=== PATIENT | male | born 1980 | race Caucasian/White ===

== ENCOUNTER 2016-11-09 08:19 | Emergency (ER) | payer OTHER ==
--- NOTE | 2016-11-09 08:47 | UC ---
Respiratory Complaint HPI - HPI Summary HPI Summary: ONSET ONE WEEK AGO WITH RIGHT EAR PAIN, MUFFLED HEARING. COUGHING. SINUS CONGESTION, SORE THROAT. TWO DAYS AGO HAD VOMITING AND DIARRHEA . NO FURTHER VOMITING BUT STILL HAS LOOSE STOOLS. Here with GF Tootie Greer in same room with same sx. He has taken zpack for these sx in past with good results. denies sinus pain. no fever. - History of Current Complaint Chief Complaint: UCRespiratory Stated Complaint: COUGH Time Seen by Provider: 11/09/16 08:44 - Allergies/Home Medications Allergies/Adverse Reactions: Allergies Allergy/AdvReac Type Severity Reaction Status Date / Time No Known Allergies Allergy Verified 11/09/16 08:36 PMH/Surg Hx/FS Hx/Imm Hx Previously Healthy: Yes Endocrine History Of: Denies: Diabetes, Thyroid Disease, Hyperthyroidism, Hypothyroidism, Dyslipidemia Cardiovascular History Of: Denies: Cardiac Disorders, Hypertension, Pacemaker/ICD, Myocardial Infarction , Congestive Heart Failure, Atrial Fibrillation, Deep Vein Thrombosis, Bleeding Disorders Respiratory History Of: Reports: Asthma, Pneumonia Denies: COPD, Pulmonary Embolism GI/ History Of: Denies: Kidney Stones Neurological History Of: Denies: TIA Psychological History Of: Denies: Schizophrenia, Post Traumatic Stress Disorder Cancer History Of: Denies: Lung Cancer, Colorectal Cancer, Breast Cancer, Prostate Cancer, Cervical Cancer Other History Of: Negative For: HIV, Hepatitis B, Hepatitis C, Anticoagulant Therapy - Surgical History Surgical History: Yes Surgery Procedure, Year, and Place: RT FOOT SURGERY, TONSILLECTOMY - Family History Known Family History: Positive: Hypertension, Diabetes, Other - + asthma - Social History Alcohol Use: Rare Substance Use Type: None Smoking Status (MU): Light Every Day Tobacco Smoker Type: Cigarettes Amount Used/How Often: 1/2 PPD Have You Smoked in the Last Year: Yes Household Exposure Type: Cigarettes Review of Systems Constitutional: Negative Skin: Negative Eyes: Negative ENT: Nasal Discharge Respiratory: Negative, Cough Cardiovascular: Negative Gastrointestinal: Other - mild loose stool. Genitourinary: Negative Motor: Negative Neurovascular: Negative Musculoskeletal: Negative Neurological: Negative Psychological: Negative All Other Systems Reviewed And Are Negative: Yes Physical Exam Triage Information Reviewed: Yes Appearance: Well-Appearing - mild distress, No Pain Distress, Well-Nourished Vital Signs: Initial Vital Signs Temp 97.6 F 11/09/16 08:37 Pulse 71 11/09/16 08:37 Resp 16 11/09/16 08:37 BP 125/76 11/09/16 08:37 Pulse Ox 99 11/09/16 08:37 Vital Signs Reviewed: Yes Eye Exam: Normal ENT Exam: Normal ENT: Positive: Pharyngeal erythema - + PND< no sinus tenderness, TMs normal. Negative: TM bulging, TM dull, TM red, Tonsillar swelling, Tonsillar exudate Dental Exam: Normal Neck exam: Normal Neck: Positive: Supple, Nontender, No Lymphadenopathy Respiratory Exam: Normal Respiratory: Positive: Chest non-tender, Lungs clear, No respiratory distress, No accessory muscle use, Decreased breath sounds. Negative: Crackles, Rhonchi, Stridor, Wheezing Cardiovascular Exam: Normal Cardiovascular: Positive: RRR, No Murmur, Pulses Normal, Brisk Capillary Refill Abdominal Exam: Normal Abdomen Description: Positive: Nontender, Soft. Negative: Distended, Guarding Bowel Sounds: Positive: Present Musculoskeletal Exam: Normal Neurological Exam: Normal Psychological Exam: Normal Skin Exam: Normal UC Diagnostic Evaluation - Laboratory O2 Sat by Pulse Oximetry: 99 Respiratory Course/Dx - Course Course Of Treatment: URI, fluids rest - Differential Dx/Diagnosis Differential Diagnosis/HQI/PQRI: Asthma, Bronchitis, Lower Resp Infection, Sinusitis Provider Diagnoses: Bronchitis, resolved mild gastroenteritis Discharge - Discharge Plan Condition: Stable Disposition: HOME Prescriptions: Albuterol HFA INHALER* [Ventolin HFA Inhaler*] 2 puff INH Q4H PRN #1 mdi PRN Reason: Cough Azithromyxin SERA (NF) [Z-Sera (Zithromax)] 250 mg PO .ZPAK INSTRUCTIONS #6 tab Patient Education Materials: Upper Respiratory Infection (ED) Referrals: Chelsy Zavala MD [Primary Care Provider] - 4 Days Additional Instructions: Fluids, rest. stoping smoking will help take a probiotic with antibiotic.
[2016-11-09 08:53] VITALS: BP 125/76
== END 2016-11-09 09:22 | disposition home or self-care (01) ==
LOC: UCCORT 08:19
DX: J40 Bronchitis, not specified as acute or chronic (principal); F17.210 Nicotine dependence, cigarettes, uncomplicated
CPT/HCPCS: 99212; G0463

== ENCOUNTER 2016-12-22 07:10 | Emergency (ER) | payer OTHER ==
[2016-12-22 07:21] VITALS: BP 132/74
--- NOTE | 2016-12-22 11:38 | UC ---
Throat Pain/Nasal Faisal HPI - HPI Summary HPI Summary: ST, cough, fever, aches x 3 days. Did not have flu shot. - History of Current Complaint Chief Complaint: UCGeneralIllness Stated Complaint: FLU SXS Time Seen by Provider: 12/22/16 07:24 Hx Obtained From: Patient Onset/Duration: Gradual Onset, Lasting Days, Still Present Pain Intensity: 7 Pain Scale Used: 0-10 Numeric Cough: Nonproductive Associated Signs & Symptoms: Positive: Dysphagia, Hoarseness, Nasal Discharge, Fever Related History: Smoking - Epiglottits Risk Factors Epiglottis Risk Factors: Negative - Allergies/Home Medications Allergies/Adverse Reactions: Allergies Allergy/AdvReac Type Severity Reaction Status Date / Time ANESTHESIA Allergy See Comment Uncoded 12/22/16 07:23 PMH/Surg Hx/FS Hx/Imm Hx Respiratory History Of: Reports: Asthma, Pneumonia Cancer History Of: Denies: Lung Cancer, Colorectal Cancer, Breast Cancer, Prostate Cancer, Cervical Cancer Other History Of: Negative For: HIV, Hepatitis B, Hepatitis C, Anticoagulant Therapy - Surgical History Surgical History: Yes Surgery Procedure, Year, and Place: RT FOOT SURGERY, TONSILLECTOMY - Family History Known Family History: Positive: Hypertension, Diabetes, Other - + asthma - Social History Occupation: Employed Full-time Lives: With Family Alcohol Use: Rare Substance Use Type: None Smoking Status (MU): Current Every Day Smoker Type: Cigarettes Amount Used/How Often: 1/2 PPD Length of Time of Smoking/Using Tobacco: 16 YRS Have You Smoked in the Last Year: Yes Household Exposure Type: Cigarettes Review of Systems Constitutional: Fever Skin: Negative Eyes: Negative ENT: Sore Throat Respiratory: Cough Cardiovascular: Negative Gastrointestinal: Negative Genitourinary: Negative Motor: Negative Neurovascular: Negative Musculoskeletal: Myalgia Neurological: Headache Psychological: Negative All Other Systems Reviewed And Are Negative: Yes Physical Exam Triage Information Reviewed: Yes Appearance: Well-Nourished, Ill-Appearing, Pain Distress Vital Signs: Initial Vital Signs Temp 99.1 F 12/22/16 07:16 Pulse 91 12/22/16 07:16 Resp 24 12/22/16 07:16 BP 132/74 12/22/16 07:16 Pulse Ox 99 12/22/16 07:16 Vital Signs Reviewed: Yes Eyes: Positive: Conjunctiva Clear ENT: Positive: Hearing grossly normal, Pharyngeal erythema, TMs normal Neck: Positive: Supple, Nontender, No Lymphadenopathy Respiratory: Positive: Lungs clear, Normal breath sounds, No respiratory distress Cardiovascular: Positive: RRR, No Murmur, Pulses Normal, Brisk Capillary Refill Musculoskeletal: Positive: Strength Intact, ROM Intact Neurological: Positive: Alert, Muscle Tone Normal Psychological Exam: Normal Skin Exam: Normal Throat Pain/Nasal Course/Dx - Course Course Of Treatment: pt is not high risk group for influenza. pt is past window for tamiflu. will advise to treat symptomatically. - Differential Dx/Diagnosis Differential Diagnosis/HQI/PQRI: Influenza, Pharyngitis, Sinusitis, URI Provider Diagnoses: influenza, clinical diagnosis Discharge - Discharge Plan Condition: Stable Disposition: HOME Prescriptions: Guaifenesin [Guaifenesin LA] 600 mg PO BID #20 tab Patient Education Materials: Influenza (ED) Referrals: No Primary Care Phys,NOPCP [Primary Care Provider] - Additional Instructions: We have given a list of providers who are accepting new patients so that you can get established with a doctor. Return to urgent care if you have any new or worsening symptoms.
== END 2016-12-22 08:20 | disposition home or self-care (01) ==
LOC: UCCORT 07:10
DX: J11.1 Influenza due to unidentified influenza virus with other respiratory manifestations (principal); J45.909 Unspecified asthma, uncomplicated; F17.210 Nicotine dependence, cigarettes, uncomplicated; Z88.4 Allergy status to anesthetic agent
CPT/HCPCS: 87651; 99212; G0463

== ENCOUNTER 2018-05-05 07:04 | Emergency (ER) | payer SELFPAY ==
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
[2018-05-05 07:28] VITALS: BP 141/94
[2018-05-05] MEDS ORDERED: Silver Sulfadiazine 1% 400gm* 1 APPLIC JAR TOPICAL ONE (07:51)
[2018-05-05] MEDS ORDERED: Silver Sulfadiazine 1%* 20 GM ONE (07:53)
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
== END 2018-05-05 08:15 | disposition home or self-care (01) ==
LOC: UCCORT 07:04
DX: T23.202A Burn of second degree of left hand, unspecified site, initial encounter (principal); T31.0 Burns involving less than 10% of body surface; Y93.I9 Activity, other involving external motion; W39.XXXA Discharge of firework, initial encounter; Y92.9 Unspecified place or not applicable; H66.91 Otitis media, unspecified, right ear; Z88.4 Allergy status to anesthetic agent; Z82.49 Family history of ischemic heart disease and other diseases of the circulatory system; Z83.3 Family history of diabetes mellitus; Z82.5 Family history of asthma and other chronic lower respiratory diseases; F17.210 Nicotine dependence, cigarettes, uncomplicated
CPT/HCPCS: 16020; 99213; A9270-GY; G0463

== ENCOUNTER 2019-02-23 14:27 | Emergency (ER) | payer SELFPAY ==
[2019-02-23 14:42] VITALS: BP 151/85
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
[2019-02-24 17:21] LABS: Neisseria gonorrhoeae (GC) RNA Negative (Negative)
== END 2019-02-23 15:21 | disposition home or self-care (01) ==
LOC: UCCORT 14:27
DX: R30.0 Dysuria (principal); E11.9 Type 2 diabetes mellitus without complications; E07.9 Disorder of thyroid, unspecified; I10 Essential (primary) hypertension; F17.210 Nicotine dependence, cigarettes, uncomplicated; Z88.8 Allergy status to other drugs, medicaments and biological substances
CPT/HCPCS: 81003; 87491; 87591; 99212; G0463